=== PATIENT | female | born 1965 | race African-American/Black ===

== ENCOUNTER 2024-05-23 16:49 | Inpatient (IN) | payer OTHER ==
[~2024-05-23] VITALS: Ht 167.6 cm; Wt 98.9 kg
[2024-05-23 20:30] VITALS: BP 162/79; TEMP 98.6; O2SAT 94
[2024-05-23] MEDS ORDERED: MAG HYDROX/AL HYDROX/SIMETH 30 ML UDC PO PRN (21:30)
[2024-05-23] MEDS ORDERED: MAGNESIUM HYDROXIDE 30 ML UDC PO PRN (21:30)
[2024-05-23] MEDS ORDERED: Z GUARD REMEDY 4 OZ OINT TP PRN (21:30)
[2024-05-23] MEDS ORDERED: ONDANSETRON HCL/PF 4 MG/2 ML VIAL IVP PRN (21:30)
[2024-05-23] MEDS ORDERED: ALBUTEROL FS 2.5 MG/3 ML VIAL.NEB NEB PRN (21:30)
[2024-05-23] MEDS ORDERED: ENOXAPARIN SODIUM 40 MG/0.4 ML DISP.SYRIN SQ SCH (21:30)
[2024-05-23] MEDS ORDERED: ZOLPIDEM TARTRATE 5 MG TABLET PO PRN (21:30)
[2024-05-23] MEDS ORDERED: HEPARIN SODIUM, PORCINE 5000 UNITS/1 ML VIAL SQ SCH (22:00)
[2024-05-23 22:09] LABS: BASOPHILS # (AUTO) 0.1 K/uL (0.0-0.2); EOSINOPHILS % (AUTO) 0.3 % (0.0-6.0); HEMATOCRIT 37 % (33-45); HEMOGLOBIN 12.5 g/dL (11.5-14.8); LYMPHOCYTES # (AUTO) 1.5 K/uL (0.8-4.8); MEAN CORPUSCULAR HEMOGLOBIN 30 PG (26.0-33.0); MEAN CORPUSCULAR HGB CONC 34 g/dl (31.0-36.0); MEAN CORPUSCULAR VOLUME 91 fL (82-100); MONOCYTES # (AUTO) 0.7 K/uL (0.1-1.30); MONOCYTES % (AUTO) 7.3 % (2.0-12.0); NEUTROPHILS # (AUTO) 7.7 K/uL (1.8-8.9); NEUTROPHILS % (AUTO) 76.4 % (43.0-81.0); PLATELET COUNT (AUTO) 283 K/uL (150-450); RED BLOOD CELL COUNT(AUTO) 4.13 MIL/uL (4.0-5.2); RED CELL DISTRIBUTION WIDTH 15.7 % (11.5-15.0); WHITE BLOOD COUNT (AUTO) 10.1 K/uL (4.3-11.0)
[2024-05-23 22:17] LABS: CALCIUM, SERUM 8.9 mg/dL (8.5-10.1); CREATININE 0.7 mg/dL (0.6-1.3); POTASSIUM 3.8 mmol/L (3.5-5.1)
[2024-05-23 22:22] LABS: ALBUMIN 2.9 g/dL (3.4-5.0); BILIRUBIN,TOTAL 0.3 mg/dL (0.2-1.0); TOTAL PROTEIN, SERUM 6.9 g/dL (6.4-8.2)
[2024-05-23] MEDS: HEPARIN SODIUM, PORCINE 5000 UNITS/1 ML VIAL SQ ONE (22:58)
[2024-05-24] VITALS (7 sets, daily range): BP systolic 138–168; BP diastolic 72–80; TEMP 97.7–99.7; O2SAT 94–97
[2024-05-24] MEDS: ACETAMINOPHEN 325 MG TABLET PO PRN (00:50)
[2024-05-24 07:06] LABS: BASOPHILS # (AUTO) 0.1 K/uL (0.0-0.2); BASOPHILS % (AUTO) 0.7 % (0.0-2.0); EOSINOPHILS # (AUTO) 0.1 K/uL (0.0-0.7); EOSINOPHILS % (AUTO) 1.7 % (0.0-6.0); HEMATOCRIT 40 % (33-45); HEMOGLOBIN 13.3 g/dL (11.5-14.8); LYMPHOCYTES % (AUTO) 23.2 % (20.0-44.0); MEAN CORPUSCULAR HEMOGLOBIN 30 PG (26.0-33.0); MEAN CORPUSCULAR HGB CONC 33 g/dl (31.0-36.0); MEAN CORPUSCULAR VOLUME 91 fL (82-100); MONOCYTES # (AUTO) 0.8 K/uL (0.1-1.30); MONOCYTES % (AUTO) 9.6 % (2.0-12.0); NEUTROPHILS # (AUTO) 5.7 K/uL (1.8-8.9); NEUTROPHILS % (AUTO) 64.8 % (43.0-81.0); PLATELET COUNT (AUTO) 324 K/uL (150-450); RED BLOOD CELL COUNT(AUTO) 4.46 MIL/uL (4.0-5.2); RED CELL DISTRIBUTION WIDTH 15.6 % (11.5-15.0); WHITE BLOOD COUNT (AUTO) 8.8 K/uL (4.3-11.0)
[2024-05-24 07:48] LABS: THYROID STIMULATING HORMONE 3.38 uIU/mL (0.358-3.74)
[2024-05-24] MEDS: PANTOPRAZOLE 40 MG TABLET.DR PO SCH (07:51)
[2024-05-24 07:52] LABS: ALBUMIN 3.1 g/dL (3.4-5.0); BILIRUBIN,DIRECT 0.1 mg/dL (0.0-0.2); BILIRUBIN,TOTAL 0.5 mg/dL (0.2-1.0); CALCIUM, SERUM 9.3 mg/dL (8.5-10.1); CREATININE 0.8 mg/dL (0.6-1.3); MAGNESIUM 2.1 mg/dL (1.8-2.4); PHOSPHORUS 4.1 mg/dL (2.5-4.9); POTASSIUM 4.1 mmol/L (3.5-5.1); TOTAL PROTEIN, SERUM 7.4 g/dL (6.4-8.2)
[2024-05-24] MEDS: predniSONE 20 MG TABLET PO SCH (08:40)
[2024-05-24] MEDS: HEPARIN SODIUM, PORCINE 5000 UNITS/1 ML VIAL SQ SCH (08:40)
[2024-05-24] MEDS: AZITHROMYCIN 250 MG TABLET PO SCH (08:41)
[2024-05-24] MEDS: AMLODIPINE BESYLATE 5 MG TABLET PO SCH (08:41)
[2024-05-24] MEDS ORDERED: CEFTRIAXONE 1 G in IV D5W 50 ML IV SCH (09:00)
[2024-05-24] MEDS ORDERED: OMEP40CA21 PO (09:28)
[2024-05-24] MEDS ORDERED: AMLO10TA4 PO (09:28)
[2024-05-24] MEDS ORDERED: ATEN50TA PO (09:28)
[2024-05-24] MEDS ORDERED: ESTRADIOL PO (09:28)
[2024-05-24] MEDS ORDERED: FLUT1DIS3 IH (09:28)
[2024-05-24] MEDS ORDERED: CHOL200059 PO (09:28)
[2024-05-24] MEDS ORDERED: ALBU8.5H8 IH (09:28)
[2024-05-24] MEDS ORDERED: DIVA500T2 PO (09:28)
[2024-05-24] MEDS ORDERED: HYDR-3976 PO (09:28)
[2024-05-24] MEDS ORDERED: HYDR100T27 PO (09:28)
[2024-05-24] MEDS ORDERED: ARIP10TA9 PO (09:28)
[2024-05-24] MEDS ORDERED: GABA300C PO (09:28)
[2024-05-24] MEDS ORDERED: MULT-594 PO (09:28)
[2024-05-24] MEDS: CEFTRIAXONE 2 G in IV D5W 100 ML IV SCH (14:14)
[2024-05-24] MEDS ORDERED: ALBUTEROL FS 2.5 MG/3 ML VIAL.NEB NEB PRN (17:05)
[2024-05-24] MEDS: RIVAROXABAN 15 MG TABLET PO SCH (17:17)
[2024-05-25 00:10] VITALS: BP 158/73; TEMP 98.2; O2SAT 99
[2024-05-25 04:10] VITALS: BP 140/66; TEMP 98.2; O2SAT 96
[2024-05-25 05:08] VITALS: BP 158/73; TEMP 98.2; O2SAT 99
[2024-05-25 09:14] VITALS: BP 150/74; TEMP 99.1; O2SAT 97
[2024-05-25] MEDS ORDERED: METH4TAB3 PO (11:17)
[2024-05-25] MEDS ORDERED: AZIT250T PO (11:17)
[2024-05-27] MEDS ORDERED: predniSONE 20 MG TABLET PO SCH (09:00)
[2024-05-30] MEDS ORDERED: predniSONE 10 MG TABLET PO SCH (09:00)
== END 2024-05-25 12:02 | disposition home or self-care (01) | DRG 139 ==
LOC: TELE 20:13
PROVIDERS: ADMIT Surgery Vascular Surgery; ATTEND Internal Medicine
DX: J15.9 Unspecified bacterial pneumonia (principal); J96.01 Acute respiratory failure with hypoxia; J44.0 Chronic obstructive pulmonary disease with (acute) lower respiratory infection; J45.901 Unspecified asthma with (acute) exacerbation; J44.1 Chronic obstructive pulmonary disease with (acute) exacerbation; G40.909 Epilepsy, unspecified, not intractable, without status epilepticus; I10 Essential (primary) hypertension; Z86.718 Personal history of other venous thrombosis and embolism; Z79.51 Long term (current) use of inhaled steroids; Z79.899 Other long term (current) drug therapy; Z68.35 Body mass index [BMI] 35.0-35.9, adult; F17.200 Nicotine dependence, unspecified, uncomplicated; Z88.0 Allergy status to penicillin; Z88.6 Allergy status to analgesic agent
CPT/HCPCS: 36415; 71045-TC; 80048-TC; 80053-TC; 80061-TC; 80076-TC; 83735-TC; 84100-TC; 84443-TC; 85025-TC; 87081-TC; 93971-TC; A4223; G0378; J0696; J1644; J7050; J7060